=== PATIENT | male | born 1965 ===

== ENCOUNTER 2018-11-08 07:27 | Day surgery (SDC) | payer MEDICAID ==
[2018-11-07 10:50] VITALS: BMI 33.9
[2018-11-08] MEDS ORDERED: Lactated Ringer's 500 ML IV SCH (08:30)
[2018-11-08] MEDS ORDERED: Propofol 10 mg/ml Inj (20 ML) ONE (09:26)
--- NOTE | 2018-11-08 10:39 | CP.SDSHP ---
Same Day Surgery H & P - History Proposed Procedure: EGD Pre-Op Diagnosis: abdominal pain - Allergies Allergies: Allergies No Known Allergies Allergy (Verified 08/21/15 17:01) - Physical Exam General Appearance: NAD Vital Signs: Vital Signs 11/08/18 07:48 Temperature 98.6 F Pulse Rate 70 Respiratory 19 Rate Blood Pressure 128/89 O2 Sat by Pulse 97 Oximetry Mental Status: Alert & Oriented x3 Neuro: WNL Heart: WNL Lungs: WNL GI: WNL - {Optional Preform as Required} Abdomen: WNL - Impression Pt. Evaluated Today:Candidate for Anesthesia & Procedure: Yes - Date & Time Date: 11/08/18 Time: 10:39 Short Stay Discharge - Short Stay Discharge Admitting Diagnosis/Reason for Visit: RIGHT UPPER QUADRANT PAIN Disposition: HOME/ ROUTINE
[2018-11-08 11:22] VITALS: TEMP 69
[2018-11-08 13:42] VITALS: RESP 16; O2SAT 98
[2018-11-08 13:46] VITALS: BP 110/74; PULSE 61
== END 2018-11-08 12:25 | disposition home or self-care (01) ==
LOC: C.ENDO 07:27
PROVIDERS: ATTEND Internal Medicine Gastroenterology
DX: K29.50 Unspecified chronic gastritis without bleeding (principal); K29.80 Duodenitis without bleeding; R10.11 Right upper quadrant pain
CPT/HCPCS: 43239; 88305; 88312; 88313; 88342; J2001; J2704; J3010; J7120